=== PATIENT | male | born 1965 | race Caucasian/White ===

== ENCOUNTER → 2018-01-21 15:43 | Outpatient (CLI) | payer BC, SELFPAY ==
[2018-01-21 16:46] LABS: Add Manual Diff / Slide Review NO; Basophils Percent Auto 0.5 % (0-2); Eosinophils Percent Auto 2.1 % (2-4); Hematocrit 42.4 % (41-53); Hemoglobin 14.6 g/dL (13.5-17.5); Lymphocytes Percent Auto 28.2 % (25-40); Mean Corpuscular HGB Conc 34.3 % (30-36); Mean Corpuscular Hemoglobin 29.7 PG (26-34); Mean Corpuscular Volume 86.7 fL (80-100); Monocytes Percent Auto 10.9 % (3-14); Neutrophils Absolute Auto 4000 /uL (3000-5900); Neutrophils Percent Auto 58.3 % (50-75); Platelet Count 329 X10^3/uL (150-400); Red Cell Distribution Width 14.7 % (11.6-14.8); White Blood Cell Count 6.9 X10^3/uL (4.5-11.0)
[2018-01-21 16:47] LABS: Carbon Dioxide 24 mmol/L (22-32); Chloride 100 mmol/L (98-107); HEMOLYSIS < 15 (0-50); Potassium 4.5 mmol/L (3.4-5.1); Sodium 137 mmol/L (137-145)
== END ==
PROVIDERS: PCP Family Medicine; Visit Provider Orthopaedic Surgery
DX: M16.11 Unilateral primary osteoarthritis, right hip (principal); Z01.818 Encounter for other preprocedural examination; Z01.812 Encounter for preprocedural laboratory examination
CPT/HCPCS: 36415; 80051; 85025

== ENCOUNTER 2018-01-31 07:51 | Inpatient (IN) | payer BC, SELFPAY ==
[2018-01-21 12:56] VITALS: BMI 34.3
[2018-01-31] VITALS (17 sets, daily range): BP systolic 84–141; BP diastolic 49–81; PULSE 54–109; RESP 13–20; TEMP 35.7–37.1; O2SAT 94–97; BMI 32.4
--- NOTE | 2018-01-31 | DI.RAD.S_ITS ---
PROCEDURE: XR PELVIS 1-2V INDICATIONS: POST OPERATIVE TOTAL RIGHT HIP TECHNIQUE: 1 view of the lower pelvis acquired. COMPARISON: None. FINDINGS: Bones: Patient is status post right hip arthroplasty, with hardware components in expected positions. The hip joint appears congruent. The visualized bony structures appear intact. Soft tissues: Overlying postoperative changes are noted. No suspicious soft tissue densities. IMPRESSION: Normal alignment after right total hip arthroplasty. Dictated by: Sarath Fonseca M.D. on 01/31/2018 at 12:40 Approved by: Sarath Fonseca M.D. on 01/31/2018 at 12:40
[2018-01-31] MEDS: LACTATED RINGERS 1,000 ML 42 ML IV (08:45)
[2018-01-31] MEDS: ACETAMINOPHEN 325 MG TABLET 975 MG PO (08:56)
--- NOTE | 2018-01-31 09:27 | PM.PREOP ---
Pre-operative Note Interval Note Pre-op Check: History & Physical Reviewed by Physician and Changes
[2018-01-31] MEDS: CEFAZOLIN 2 GM/100 ML FROZ.PIGGY IV ×2 (09:57→18:13)
[2018-01-31] MEDS: TRANEXAMIC ACID 1,000 MG VIAL 1000 MG INJ ×3 (10:15→11:12)
--- NOTE | 2018-01-31 10:28 | SUR.OPER ---
Left Lateral on padded OR bed. Gel axillary roll. Arms secured on padded armboard with pillow supporting top arm. Padded hip positioner braces x4 - anterior and posterior chest and pelvis. Additional gel pad used anterior pelvis. Gel pad under bottom leg from knee to foot and secured with tape over sheet.
[2018-01-31] MEDS: BUPIVACAINE LIPOSOME 266 MG/20 ML VIAL INJ ×2 (10:35→10:36)
--- NOTE | 2018-01-31 12:07 | PM.OP.1 ---
Operative Date/Time/Diagnoses - Date of procedure: 01/31/18 Time of procedure: 12:07 Pre-op diagnosis: Right hip degenerative joint disease Post-op diagnosis: same Procedure & Clinicians Procedure: Right total hip arthroplasty (CPT code 31447 with assistant finance director) Same procedure as scheduled: Yes Indications: Patient is an 52-year-old male with severe right hip DJD. The patient has pain with activities and at rest, limited ambulation and activity tolerance, difficulties with ADLs, and failure of conservative treatment. We have discussed the nature of condition, treatment options, risks and benefits, and patient elects to proceed with total hip arthroplasty and gives informed consent. Surgeon: Delvin Johnson Support Representative: Ki Patten Anesthesia Type: General and Spinal Operative Notes Closure Type: primary Specimen(s): none sent Implants & Drains: Acetabulum: Stewart [employer]hew R3 acetabular component size 54 mm Femoral component: Stewart [employer]hew Synergy stem size 13 with standard offset Femoral head: 36 mm + 0 Oxinium Estimated Blood Loss (mL): 100 Blood products transfused: none Procedure in detail: After satisfaction induction of anesthetic, and administration of IV antibiotics, the patient was positioned in the lateral decubitus position with all bony prominences well padded and pelvic position secured using a hip link trainer operator positioning device. Right hip and lower extremity prepped and draped in the usual sterile fashion, 1st dose of intravenous tranexamic acid was administered, then a longitudinal incision was created centered over the greater trochanter and carried sharply through the skin and subcutaneous tissues down to the fascia raina which was divided longitudinally and retracted with a Charnley retractor. External rotators visualize, cut, tagged, and retracted posteriorly, then the capsule was cut in a T-type fashion with the corners tagged and retracted. Hip was dislocated and femoral neck cut made according to preoperative templating. Acetabular retractors then placed, and the acetabular labrum and osteophytes were excised. The acetabulum was then sequentially reamed to 53 mm with an excellent circumferential ream and fit with the trial. The trial component was removed and a permanent size 54 mm Stewart [employer] Nephew R3 acetabular component was selected, positioned, and impacted with satisfactory position and fixation achieved. Permanent liner was then inserted with the elevated lip directed posteriorly. Soft tissue then removed off the lateral femoral neck in the lateral neck was entered using a box osteotome. T-handled reamers placed down the canal followed by sequential broaching to 13 with the final broach left in place for trial reduction which demonstrated excellent leg length, range of motion, and stability characteristics with a 36 mm +0 trial ball. The trial and broach were removed, and a permanent size 13 Stewart and Nephew Synergy stem was selected and inserted with excellent position and fixation achieved. Another trial reduction yielded the above characteristics so the trial ball was exchanged for a permanent 36 mm +0 Oxinium ball. The hip was irrigated and reduced and excellent leg length range of motion and stability characteristics were achieved and maintained. Periarticular tissues were infiltrated with Exparel. The hip was copiously irrigated, and the capsule repaired with #2 Ethibond, and the piriformis was repaired back to the greater trochanter with the same. Fascia raina closed with interrupted #1 Ethibond sutures, and the subcutaneous tissues were closed in 2 layers of 0 Vicryl and 2 0 Vicryl. Skin was closed with sujatha and sterile dressings applied. Second dose of tranexamic acid was administered intravenously, and the anesthetic was terminated. Complications: none Condition: stable Disposition: PACU Plan for aftercare: Patient will be admitted to the acute care weir, and anticipate discharge on postop day 1-2 with follow-up in office in 10-14 days. Outpatient physical therapy will be arranged and patient will continue to observe posterior hip precautions. Patient will continue use of postoperative Lovenox for 10 days postop.
--- NOTE | 2018-01-31 12:10 | P.OP_ITS ---
Operative Date/Time/Diagnoses - Date of procedure: 01/31/18 Time of procedure: 12:07 Pre-op diagnosis: Right hip degenerative joint disease Post-op diagnosis: same Procedure & Clinicians Procedure: Right total hip arthroplasty (CPT code 03545 with plastic surgery assistant) Same procedure as scheduled: Yes Indications: Patient is an 52-year-old male with severe right hip DJD. The patient has pain with activities and at rest, limited ambulation and activity tolerance, difficulties with ADLs, and failure of conservative treatment. We have discussed the nature of condition, treatment options, risks and benefits, and patient elects to proceed with total hip arthroplasty and gives informed consent. Surgeon: Delvin Johnson Air Conditioning Manager: Ki Patten Anesthesia Type: General and Spinal Operative Notes Closure Type: primary Specimen(s): none sent Implants & Drains: Acetabulum: Stewart [employer] Nephew R3 acetabular component size 54 mm Femoral component: Stewart [employer]hew Synergy stem size 13 with standard offset Femoral head: 36 mm + 0 Oxinium Estimated Blood Loss (mL): 100 Blood products transfused: none Procedure in detail: After satisfaction induction of anesthetic, and administration of IV antibiotics, the patient was positioned in the lateral decubitus position with all bony prominences well padded and pelvic position secured using a hip weaver wire loom positioning device. Right hip and lower extremity prepped and draped in the usual sterile fashion, 1st dose of intravenous tranexamic acid was administered, then a longitudinal incision was created centered over the greater trochanter and carried sharply through the skin and subcutaneous tissues down to the fascia raina which was divided longitudinally and retracted with a Charnley retractor. External rotators visualize, cut, tagged, and retracted posteriorly, then the capsule was cut in a T-type fashion with the corners tagged and retracted. Hip was dislocated and femoral neck cut made according to preoperative templating. Acetabular retractors then placed, and the acetabular labrum and osteophytes were excised. The acetabulum was then sequentially reamed to 53 mm with an excellent circumferential ream and fit with the trial. The trial component was removed and a permanent size 54 mm Stewart and Nephew R3 acetabular component was selected, positioned, and impacted with satisfactory position and fixation achieved. Permanent liner was then inserted with the elevated lip directed posteriorly. Soft tissue then removed off the lateral femoral neck in the lateral neck was entered using a box osteotome. T-handled reamers placed down the canal followed by sequential broaching to 13 with the final broach left in place for trial reduction which demonstrated excellent leg length, range of motion, and stability characteristics with a 36 mm +0 trial ball. The trial and broach were removed, and a permanent size 13 Stewart and Nephew Synergy stem was selected and inserted with excellent position and fixation achieved. Another trial reduction yielded the above characteristics so the trial ball was exchanged for a permanent 36 mm +0 Oxinium ball. The hip was irrigated and reduced and excellent leg length range of motion and stability characteristics were achieved and maintained. Periarticular tissues were infiltrated with Exparel. The hip was copiously irrigated, and the capsule repaired with #2 Ethibond, and the piriformis was repaired back to the greater trochanter with the same. Fascia raina closed with interrupted #1 Ethibond sutures, and the subcutaneous tissues were closed in 2 layers of 0 Vicryl and 2 0 Vicryl. Skin was closed with sujatha and sterile dressings applied. Second dose of tranexamic acid was administered intravenously , and the anesthetic was terminated. Complications: none Condition: stable Disposition: PACU Plan for aftercare: Patient will be admitted to the acute care weir, and anticipate discharge on postop day 1-2 with follow-up in office in 10-14 days. Outpatient physical therapy will be arranged and patient will continue to observe posterior hip precautions. Patient will continue use of postoperative Lovenox for 10 days postop.
[2018-01-31] MEDS: LACTATED RINGERS 1,000 ML 41 ML IV (12:16)
--- NOTE | 2018-01-31 12:19 | SUR.PHASEI ---
DR ETIENNE AWARE OF PTS BP AND HR, GIVE IV BOLUS LR PER DR ETIENNE. PT AWAKE DENIES ANY PAIN OR DISCOMFORT, DERMATONE LEVEL T 10, PT ABLE TO MOOVE LOWEER EXTREMITIES
--- NOTE | 2018-01-31 12:33 | SUR.PHASEI ---
REPORT CALLED TO YOSEF CRUZ
[2018-01-31] MEDS: OXYCODONE/ACETAMINOPHEN 5/325 TABLET 1 TAB PO ×2 (14:10→18:12)
[2018-01-31] MEDS: hydrOXYzine pamoate 25 MG CAPSULE PO ×2 (14:10→20:05)
[2018-01-31] MEDS: HYDROMORPHONE 0.5 MG INJ IV (14:15)
[2018-01-31] MEDS: HYDROCODONE/ACET 5/325 TABLET 1 TAB PO (16:22)
[2018-01-31] MEDS: LACTATED RINGERS 1,000 ML 100 ML IV (20:03)
[2018-01-31] MEDS: LORazepam 0.5 MG TABLET PO (20:04)
[2018-01-31] MEDS: METOPROLOL 25 MG TABLET 12.5 MG PO (20:04)
[2018-01-31] MEDS: ATORVASTATIN 20 MG TABLET PO (20:04)
[2018-01-31] MEDS: DOCUSATE 100 MG CAPSULE PO (20:04)
[2018-01-31] MEDS: OXYCODONE/ACETAMINOPHEN 5/325 TABLET 2 TAB PO (23:00)
[2018-02-01 00:01] VITALS: BP 114/70; PULSE 86; RESP 16; TEMP 36.6; O2SAT 95
[2018-02-01] MEDS: hydrOXYzine pamoate 25 MG CAPSULE PO ×2 (01:42→08:51)
[2018-02-01] MEDS: CEFAZOLIN 2 GM/100 ML FROZ.PIGGY IV (01:42)
[2018-02-01] MEDS: OXYCODONE/ACETAMINOPHEN 5/325 TABLET 2 TAB PO ×3 (04:34→12:54)
[2018-02-01 05:05] VITALS: BP 100/62; PULSE 64; RESP 16; TEMP 36.7; O2SAT 96
[2018-02-01 06:01] LABS: Hematocrit 37.8 % (41-53); Hemoglobin 12.7 g/dL (13.5-17.5)
[2018-02-01 06:50] VITALS: BP 112/77; PULSE 64
[2018-02-01 08:44] VITALS: BP 131/81; PULSE 64; RESP 17; TEMP 37.2; O2SAT 94
[2018-02-01] MEDS: ASPIRIN EC 81 MG TABLET PO (08:51)
[2018-02-01] MEDS: LISINOPRIL 10 MG TABLET PO (08:51)
[2018-02-01] MEDS: DOCUSATE 100 MG CAPSULE PO (08:51)
[2018-02-01] MEDS: METOPROLOL 25 MG TABLET 12.5 MG PO (08:51)
[2018-02-01] MEDS: ENOXAPARIN 40 MG/0.4 ML SYRINGE SUBCUT (08:52)
[2018-02-01] MEDS: LORazepam 0.5 MG TABLET PO (08:58)
--- NOTE | 2018-02-01 11:06 | PT.IIE ---
Current Diagnoses Unilateral primary osteoarthritis, right hip (01/31/18) Surgery Performed Operation Date: 01/31/18 09:45 Actual Procedures p Total Hip Arthroplasty(Right) - Delvin Johnson MD Surgical History (Last Updated 01/21/18 @ 15:02 by Pamella Spear, RN) History of cardiac cath (Acute ~10/2017) Medical History (Last Updated 01/21/18 @ 15:01 by Pamella Spear, RN) Anxiety (Acute) Arthritis (Acute) Hip pain, right (Acute) History of reactive airway disease (Acute) Impaired vision (Acute) Loss of hearing (Acute) Low back pain (Acute) On anticoagulant therapy (Acute) Restless legs (Acute) Shortness of breath (Acute) Physical Therapy Inpatient Evaluation/Re-Eval Medical Review Prior Functional Status Medical History Reviewed Yes Diet/Fluid Consistency Regular Communication no known deficits Mobility and Gait ind to mod ind w/ walker, depending on how he's feeling Activities of Daily Living and IADL's needs help getting on socks and shoes but has been performing this for him. Prior Functional Level (Other details) Participated in pre-op classes and feels he's getting around better now than he was just prior to the LOLA. Social History Household Members spouse Living Arrangements House Number of Floors (Floors) One Floor Number of Stairs To Enter/Railing? 1-2STE no rail Home Environment Standard Height Toilet Walk in Shower Home Equipment Front Wheel Walker Raised Toilet Seat w/Armrests Additional Social History Comment can provide as much assistance as is needed at home Physical Therapy Current Condition Current Condition Evaluation Date 02/01/18 Treatment Diagnosis R post LOLA Onset Date 01/31/18 Precautions Posterior Hip Precautions No Hip Flexion > 90 degrees No Hip Internal Rotation No Hip Adduction Weight Bearing Status Weight Bearing Status Weight Bear as Tolerated Subjective Physical Therapy Visit Type Type Initial Evaluation Visit Start Time 09:30 Visit Stop Time 10:00 Total Visit Minutes 30 Physical Therapy Visit Comments Patient Comments Pt feels he's already doing better now than before the surgery. Patient/Caregiver Goals go home today ANDREW Therapy Pain Assessment Pain When Pain Assessed At Rest Pain Present Pain Present Denied Pain PT-Bed Mobility Assessment Supine to Sit Supine to Sit Standby Assistance Sit to Supine Sit to Supine Standby Assistance Scooting Scooting to Edge of Bed Standby Assistance PT-Transfer Assessment Sit to and From Stand Sit to and from Stand Standby Assistance Equipment Transfer Assistive Device Front Wheeled Walker Transfers Transfer Destination Chair Transfer Technique Stand Step Pivot Transfer Ability Level of Assist Standby Assistance Gait Assessment Gait Gait Assistance Required: Standby Assistance Distance (Feet) (feet) 200 Assistive Devices Assistive Device Front Wheeled Walker Gait Deviations General Gait Pattern Antalgic Factors Limiting Gait Function Factors Limiting Gait Function Decreased Strength Pain Comments Gait Comments Began with step-to gait pattern but with cues and repetition able to progress to more symmetrical step-through gait pattern, definitely heavy reliance on BUE. Stair Climbing Assessment Comments Stair Climbing Comments not tested, has no stairs, won 't need to test. PT-Balance Assessment Sitting Balance and Reactions Static Sitting Balance Ability Good Dynamic Sitting Balance Ability Good Standing Balance and Reactions Static Standing Balance Ability Fair Dynamic Standing Balance Ability Fair Device Used FWW Orientation Orientation/Cognition Level of Alertness Alert Orientation Name Age Birthday Month Date Year Day of Week Place Situation Language Function Ability No Deficits Noted Safety Awareness Understands Safety Issues Memory Description No Deficits Noted Gross Range of Motion Upper Extremity ROM Assessment Within Functional Limits Lower Extremity ROM Impairments WFL within allowance of hip precautions Strength Upper Extremity Strength Assessment Within Functional Limits Comments Strength Comments not formally tested but LLE WFL and RLE able to perform some anti-gravity movements but limited by pain as well. Physical Therapy Treatment Exercises Exercises Ankle Pumps Gluteal Sets Quad Sets Heel Slides Supine Hip Abduction Education Education Provided Precautions Weight Bearing Status Post-Op Packet Safety PT Summary Assessment and Plan Potential Rehabilitation Potential Good Status of Condition at Evaluation Stable Summary Impairments Pain Strength Progress Towards Goals Safe For Discharge Assessment Summary POD#1 R post LOLA, pt doing well with mobility, supervision for all mobility with FWW. able to provide needed assist for ADLs. Pt eager to get home today. Pt is safe to discharge home at this time and will need to continue with OPPT. Goals Bed Mobility Goal Standby Assistance Transfer Goal Standby Assistance Gait Goal Standby Assistance Gait Distance 150 Days to Meet Goals 1 Frequency of Treatment Frequency Of Treatment Discharge Recommendations To Nursing Amount of Assist Needed Standby Assistance Discharge Recommendations PT Discharge Recommendations Home with Assistance Outpatient PT
[2018-02-01 11:23] VITALS: BP 141/89; PULSE 78; RESP 15; TEMP 37.3; O2SAT 92
--- NOTE | 2018-02-01 13:25 | CM.DANOTE ---
DCP/Assessment: Reviewed chart. Patient is a 52yr old male admitted to [facility] for elective right LOLA performed on 01-31-[address] Johnson. PCP is Dr. Carreno. Primary payor is 1)[facility] out of [facility]. Met with patient and spouse/Katerine at bedside explained CM/SW role. Patient reports that he plans to d/c home today. Patient and spouse report that they have all needed DME. Patient seen by therapy and cleared to return home. No additional needs identified. P: Home when medically stable. CONCHITA Morrison
--- NOTE | 2018-02-01 14:38 | PM.DS.1 ---
History of Present Illness Date Patient Seen: 02/01/18 Time Patient Seen: 13:39 Chief complaint: primary osteoarthrisits of right hip [id number] Narrative: Status post right total hip arthroplasty with Dr. Johnson Discharge Providers Date of admission: 01/31/18 07:51 Primary care physician: Fahad Carreno MD Consults: 01/31/18 13:55 Consult to Discharge Planning Routine Comment: Consult to Physical Therapy Evaluate & Treat Comment: Physician Instructions: post op LOLA protocol Discharge provider: Ricarda Mark PA-C Summary Discharge Diagnosis: Status post right total hip arthroplasty Hospital Course: Malachi was admitted for right total hip arthroplasty with Dr. Johnson and he consented to procedure. Hospital course was unremarkable. Postop day 1. He was feeling well and wanted to go home. He was eating and voiding without difficulty or assistance. He had been up ambulating with physical therapy, and knows his posterior hip precautions. He will set up outpatient physical therapy as soon as possible. He already has his prescriptions at home. He is refusing to do Lovenox for DVT prophylaxis, he will do ASA 81 mg b.i.d.. On day of discharge dressing was CDI, calves were soft, compressible, and nontender bilaterally. Status at Discharge Functional status at discharge: uses cane/walker Time Spent with Patient Less than 30 minutes Exam Vital Signs (past 8 hours): - 02/01/18 06:50 02/01/18 08:44 02/01/18 11:23 Temperature 98.9 F 99.2 F Pulse Rate 64 64 78 Respiratory Rate 17 15 Blood Pressure 112/77 131/81 H 141/89 H Pulse Oximetry 94 92 Oxygen Delivery Method Room Air Oxygen Flow Rate 0 Narrative Exam Narrative: Patient sitting at bedside chair in no acute distress. He is alert and oriented x3. Dressing on right hip is CDI. Sensation intact to light touch throughout bilateral lower extremities. Calves are soft, compressible, nontender bilaterally. Pulses are symmetrical. Pain is adequately controlled. He has been up and ambulating with physical therapy without difficulty. He denies any chest pain, or shortness of breath. Objective Labs Result Diagrams: 02/01/18 05:23 Labs: Laboratory Results - last 24 hr 02/01/18 05:23 Hgb 12.7 L Hct 37.8 L Discharge Plan Discharge Plan Patient Disposition: Home, Self-Care Discharge Med Rec/Prescriptions Prescriptions: Continue meloxicam [Mobic] 7.5 mg Tablet 15 mg PO DAILY Qty: 0 RF: 0 lisinopril 10 mg tablet 10 mg PO QDAY Qty: 30 RF: 5 metoprolol tartrate 25 mg tablet 12.5 mg PO BID Qty: 90 RF: 5 aspirin 81 mg tablet,delayed release (DR/EC) 81 mg PO QDAY Qty: 90 RF: 0 albuterol sulfate 90 mcg/actuation HFA aerosol inhaler 2 puff INHALATION Q4-6H PRN (Reason: bronchospasm) Qty: 6.7 RF: 5 hydroxyzine pamoate [Vistaril] 25 mg Capsule 25 - 50 mg PO Q6H PRN (Reason: Spasms) RF: 0 oxycodone 5 MG tablet 5 mg PO Q4HP PRN (Reason: Pain) RF: 0 atorvastatin 40 mg tablet 20 mg PO HS RF: 0 lorazepam 0.5 mg tablet 0.5 mg PO BIDP PRN (Reason: anxiety) RF: 0 Follow up/Referrals: Delvin Johnson MD [Physician] - (Follow-up in 5-7 days) Provider Discharge Instructions Diet: Diet as Tolerated Activity: Posterior hip precautions, weight bearing as tolerated. Cold/Heat Therapy: as needed Wound Care Report to your healthcare provider any signs of infection, such as:: chills, fever and increased pain Dressing: keep dressing in place until appointment Visit Report/Discharge Packet Instructions: DI for Hip Replacement Visit Report Forms: Stroke Signs & Symptoms Discharge Data Primary Care Provider: Fahad Carreno Attending Provider: Delvin Johnson Admit Date/Time: 01/31/18 07:51 Quality VTE Deep Vein Thrombosis/Pulmonary Embolism Present on Admission: No
--- NOTE | 2018-02-01 14:39 | PC.NURSE ---
discharge pt states pain controlled with percocet and vistaril. up with PT and FWW. d/c instructions provided to pt and . notified to call MD with any questions or concerns. F/u apt on 02/07. PIV removed without issue. pt left hospital with all his belongings. left in w/c with NATIONAL ACCOUNTS RECRUITER around 1420.
== END 2018-02-01 14:20 | disposition home or self-care (01) | DRG 470 ==
PROVIDERS: Admitting Provider Orthopaedic Surgery; PCP Family Medicine; Visit Provider Orthopaedic Surgery
PROC: 0SR90JZ Replacement of Right Hip Joint with Synthetic Substitute, Open Approach (ICD-10-PCS; CPT 27130; principal; 2018-01-31 09:45)
DX: M16.11 Unilateral primary osteoarthritis, right hip (principal); I51.81 Takotsubo syndrome; F41.9 Anxiety disorder, unspecified; I11.9 Hypertensive heart disease without heart failure; Z87.891 Personal history of nicotine dependence
CPT/HCPCS: 36415; 72170; 85014; 85018; 97116; 97161; C1776; C9290; J0690; J1100; J1170; J1650; J2405; J2704

== ENCOUNTER → 2019-05-09 07:34 | Outpatient (CLI) | payer OTHER, SELFPAY ==
[2018-01-31 13:57] VITALS: BMI 32.4
[2019-05-09 08:03] LABS: Add Manual Diff / Slide Review NO; Basophils Absolute Auto 0 /uL (0-100); Basophils Percent Auto 0.6 % (0-2); Eosinophils Absolute Auto 300 /uL (0-450); Eosinophils Percent Auto 4.4 % (2-4); Hematocrit 42.9 % (41-53); Hemoglobin 14.5 g/dL (13.5-17.5); Lymphocytes Absolute Auto 2000 /uL (1100-4500); Lymphocytes Percent Auto 31.7 % (25-40); Mean Corpuscular HGB Conc 33.9 % (30-36); Mean Corpuscular Volume 91.4 fL (80-100); Monocytes Absolute Auto 700 /uL (0-900); Monocytes Percent Auto 10.6 % (3-14); Neutrophils Absolute Auto 3300 /uL (1500-7000); Neutrophils Percent Auto 52.7 % (50-75); Platelet Count 315 X10^3/uL (150-400); Red Blood Cell Count 4.69 X10^6/uL (4.5-5.9); Red Cell Distribution Width 14.4 % (11.6-14.8); White Blood Cell Count 6.2 X10^3/uL (4.5-11.0)
[2019-05-09 08:06] LABS: Alanine Aminotransferase 37 IU/L (21-72); Albumin 4.5 g/dL (3.5-5.0); Albumin Globulin Ratio 1.6 (1.0-2.8); Alkaline Phosphatase 87 U/L (38-126); Aspartate Aminotransferase 31 IU/L (17-59); BUN Creatinine Ratio 38.3 (6-22); Bilirubin Total 0.4 mg/dL (0.2-1.3); Blood Urea Nitrogen 23 mg/dL (9-20); Calcium 9.6 mg/dL (8.4-10.2); Carbon Dioxide 28 mmol/L (22-32); Chloride 105 mmol/L (98-107); Cholesterol 151 mg/dL (140-199); Estimated Glomerular Filt Rate > 60.0 mL/min (>60); Globulin 2.8 g/dL (1.7-4.1); Glucose 104 mg/dL (70-100); HDL Cholesterol 59 mg/dL (40-60); HEMOLYSIS < 15 (0-50); LDL Cholesterol Calculated 76 mg/dL (<100); Potassium 4.9 mmol/L (3.4-5.1); Sodium 140 mmol/L (137-145); Total Protein 7.3 g/dL (6.3-8.2); Triglycerides 80 mg/dL (35-150)
[2019-05-09 08:36] LABS: Prostate Specific Antigen Scrn 0.852 ng/mL (0.1-4.0)
[2019-05-09 09:04] LABS: Thyroid Stimulating Hormone 2.58 uIU/mL (0.47-4.68)
== END ==
PROVIDERS: PCP Family Medicine; Visit Provider Family Medicine
DX: I24.9 Acute ischemic heart disease, unspecified (principal)
CPT/HCPCS: 36415; 80053; 80061; 84443; 85025; G0103

== ENCOUNTER → 2019-09-12 11:07 | Outpatient (CLI) | payer BC, SELFPAY ==
[2018-01-31 13:57] VITALS: BMI 32.4
--- NOTE | 2019-09-12 | DI.RAD.S_ITS ---
PROCEDURE: XR CHEST 2V INDICATIONS: shortness of breath TECHNIQUE: 2 views of the chest were acquired. COMPARISON: [facility], , CHEST 1 VIEW, 11/10/2017, 2:25. FINDINGS: Surgical changes and devices: Stable cervical spinal fusion hardware. Lungs and pleura: Hyperaeration with flattening of the hemidiaphragms. Changes compatible with chronic obstructive pulmonary physiology. No focal consolidation. No pleural effusions or pneumothorax. Mediastinum: Mediastinal contours are normal. Heart size is normal. Bones and chest wall: No suspicious bony abnormalities. Soft tissues appear unremarkable. IMPRESSION: Chest without acute cardiopulmonary abnormalities. Findings consistent with chronic obstructive pulmonary physiology. No focal airspace disease. Dictated by: Sebastián Davis M.D. on 09/12/2019 at 14:41 Approved by: Sebastián Davis M.D. on 09/12/2019 at 14:46
== END ==
PROVIDERS: PCP Family Medicine; Referring Provider Family Medicine; Visit Provider Family Medicine
DX: R06.02 Shortness of breath (principal)
CPT/HCPCS: 71046

== ENCOUNTER → 2020-07-31 09:55 | Outpatient (CLI) | payer BC, SELFPAY ==
[2018-01-31 13:57] VITALS: BMI 32.4
[2020-07-31 10:23] LABS: Add Manual Diff / Slide Review NO; Basophils Absolute Auto 0 /uL (0-100); Basophils Percent Auto 0.7 % (0-2); Eosinophils Absolute Auto 200 /uL (0-450); Eosinophils Percent Auto 2.6 % (2-4); Hematocrit 43.4 % (41-53); Hemoglobin 14.5 g/dL (13.5-17.5); Lymphocytes Absolute Auto 1700 /uL (1100-4500); Lymphocytes Percent Auto 27.8 % (25-40); Mean Corpuscular HGB Conc 33.5 % (30-36); Mean Corpuscular Hemoglobin 30.5 PG (26-34); Mean Corpuscular Volume 90.9 fL (80-100); Monocytes Absolute Auto 600 /uL (0-900); Monocytes Percent Auto 9.6 % (3-14); Neutrophils Absolute Auto 3600 /uL (1500-7000); Neutrophils Percent Auto 59.3 % (50-75); Platelet Count 297 X10^3/uL (150-400); Red Blood Cell Count 4.77 X10^6/uL (4.5-5.9); Red Cell Distribution Width 14.2 % (11.6-14.8)
[2020-07-31 11:33] LABS: TSH w/ Reflex to FT4 1.75 uIU/mL (0.47-4.68)
[2020-07-31 12:53] LABS: Alanine Aminotransferase 33 IU/L (<50); Albumin 4.5 g/dL (3.5-5.0); Albumin Globulin Ratio 1.5 (1.0-2.8); Alkaline Phosphatase 84 U/L (38-126); Aspartate Aminotransferase 33 IU/L (17-59); BUN Creatinine Ratio 27.3 (6-22); Bilirubin Total 0.3 mg/dL (0.2-1.3); Blood Urea Nitrogen 15 mg/dL (9-20); Calcium 9.4 mg/dL (8.4-10.2); Carbon Dioxide 31 mmol/L (22-32); Chloride 101 mmol/L (98-107); Cholesterol 153 mg/dL (140-199); Estimated Glomerular Filt Rate > 60.0 mL/min (>60); Globulin 3.1 g/dL (1.7-4.1); Glucose 109 mg/dL (70-100); HDL Cholesterol 59 mg/dL (40-60); HEMOLYSIS < 15 (0-50); LDL Cholesterol Calculated 72 mg/dL (<100); Potassium 4.5 mmol/L (3.4-5.1); Sodium 136 mmol/L (137-145); Total Protein 7.6 g/dL (6.3-8.2); Triglycerides 109 mg/dL (35-150)
[2020-07-31 13:21] LABS: Prostate Specific Antigen 1.23 ng/mL (0.10-4.00)
[2020-07-31 14:36] LABS: Hemoglobin A1C% w Est Avg Glu 6.1 % (4.0-6.0)
== END ==
PROVIDERS: PCP Family Medicine; Referring Provider Family Medicine; Visit Provider Family Medicine
DX: I10 Essential (primary) hypertension (principal); I24.9 Acute ischemic heart disease, unspecified
CPT/HCPCS: 36415; 80053; 80061; 83036; 84153; 84443; 85025

== ENCOUNTER → 2020-08-22 14:17 | Outpatient (CLI) | payer BC, SELFPAY ==
[2020-08-05 13:40] VITALS: BMI 32.4
[2020-08-22 16:07] LABS: COVID19 -Nasal RAPID Negative (Negative)
== END ==
PROVIDERS: PCP Family Medicine; Visit Provider Surgery
DX: Z20.822 Contact with and (suspected) exposure to COVID-19 (principal); Z01.812 Encounter for preprocedural laboratory examination
CPT/HCPCS: 87635; C9803

== ENCOUNTER 2020-08-23 07:23 | Day surgery (SDC) | payer BC, SELFPAY ==
[2020-08-05 13:40] VITALS: BMI 32.4
--- NOTE | 2020-08-23 | PATH_ITS ---
[facility] Accession Number: [id number] . 01 Material submitted: . PART A: body - POLYP AT 120 CM PART B: body - POLYP AT 65 CM . 02 Diagnosis: A. Colon Polyp at 120 cm, Biopsy: Tubular adenoma. . B. Colon Polyp at 65 cm, Biopsy: Tubular adenoma. MRV 08/28/2020 1136 Local . 02 Electronically signed: . Issac Reyes MD, PhD, Pathologist NPI- [id number] . 01 Gross description: . Part A: POLYP AT 120 CM: Received in formalin are 2 fragment(s) of parnell, soft tissue measuring 0.2 x 0.1 x 0.1 cm to 0.3 x 0.3 x 0.2 cm submitted entirely in 1 cassette(s) Part B: POLYP AT 65 CM: Received in formalin are 2 fragment(s) of parnell, soft tissue measuring 0.7 x 0.4 x 0.4 cm to 1.1 x 0.7 x 0.6 cm submitted entirely in 1 cassette(s) /MAIRA 08/26/2020 1914 Local . 02 Pathologist provided ICD-10: D12.6 . 02 CPT . 808974, [id number] Performed at: 01 [facility] [address], [place], [place] [id number] MD Florian Lara MD Phone: [phone] Performed at: 02 [facility] [address] [place], [place] [id number] MD Kusum Mcallister MD Phone: [phone]
[2020-08-23] MEDS: SODIUM CHLORIDE 0.9% 1,000 ML 200 ML IV (07:50)
[2020-08-23 07:51] VITALS: BP 135/81; PULSE 76; RESP 16; TEMP 37.1; O2SAT 96; BMI 36.5
--- NOTE | 2020-08-23 08:23 | PM.HP.1 ---
History of Present Illness History of Present Illness Date Patient Seen: 08/23/20 Time Patient Seen: 08:23 Chief complaint: SDC Narrative: This is a 55-year-old man who has never had a screening colonoscopy. He denies any personal or family history of colon cancers or colon polyps. He is a current smoker. He has a history of stress-induced cardiomyopathy and NSTEMI, but has been deemed stable by his primary care provider and [employer], and last echo was EF of 50%. He has obesity with a BMI of 36. He has noticed some changes in bowel habit, with increased constipation and some blood in the stool. He denies any melena, unexplained weight loss, or unexplained abdominal pain. He is here today for his 1st screening colonoscopy. ROS: Positive for shortness of breath. Thirteen system review is otherwise negative other than as mentioned below and in HPI. PE: GENERAL: Well groomed and cooperative. Appears stated age. Answers questions promptly and appropriately. Vital signs noted. HENT: Normocephalic, atraumatic. Hearing intact. EYES: Conjunctiva pink, sclera white, no periorbital swelling. CARDIOVASCULAR: Regular rate. No pedal edema. RESPIRATORY: Non-tachypneic, breathing comfortably on room air. GASTROINTESTINAL: Abdomen soft and non-distended GENITALURINARY: No flank tenderness. MUSCULOSKELETAL: Equal tone and mass bilaterally. SKIN: Warm, dry, soft, appropriate color for ethnicity. No other lesions, rashes, or wounds. NEURO: Alert and Oriented X 3. No gross sensory deficits, or cognitive issues. PSYCH: Appropriate affect and mood. Patient History Medical History Anxiety Arthritis Asthma Hip pain, right History of reactive airway disease Hyperlipidemia Hypertension Impaired vision Loss of hearing Low back pain On anticoagulant therapy Prediabetes Restless legs Shortness of breath Surgical History History of cardiac cath (~10/2017) Family & Social History Social History: household members spouse Tobacco & Substance use: Tobacco type cigarettes,smokeless tobacco Smoking Status Former smoker alcohol intake current alcohol intake frequency a few times a week Substance Use Type does not use Meds Home Medications and Allergies Home Medications Medication Instructions Recorded Confirmed Type albuterol sulfate 90 mcg/actuation 2 puff INHALATION Q4-6H PRN #6.7 12/03/20 01/22/21 Rx aerosol inhaler gram atorvastatin 40 mg tablet 20 mg PO HS #90 tab 07/04/20 08/23/20 Rx lisinopril 10 mg tablet 10 mg PO QDAY #90 tab 07/04/20 08/23/20 Rx metoprolol tartrate 25 mg tablet 12.5 mg PO BID #90 tab 07/04/20 08/23/20 Rx tamsulosin 0.4 mg capsule 0.4 mg PO BEDTIME #90 cap 07/31/20 08/23/20 Rx Allergies Allergy/AdvReac Type Severity Reaction Status Date / Time No Known Drug Allergies Allergy Verified 08/23/20 07:42 Exam Vital Signs (past 8 hours): - 08/23/20 07:51 Temperature 98.7 F Pulse Rate 76 Respiratory Rate 16 Blood Pressure 135/81 Pulse Oximetry 96 Oxygen Delivery Method Room Air Assessment & Plan Assessment and plan (1) Prediabetes: Status: Acute (2) Asthma: Qualifiers: Asthma severity: mild Asthma persistence: persistent Asthma complication type: uncomplicated Qualified Code(s): J45.30 - Mild persistent asthma, uncomplicated Status: Acute (3) Non-ST elevation (NSTEMI) myocardial infarction: Status: None (4) Stress-induced cardiomyopathy: Status: None (5) Change in bowel habits: Status: Acute (6) Smoker: Status: Acute Assessment & Plan narrative: Risks and benefits of screening colonoscopy and possible polypectomy were discussed with the patient including risk of bleeding, perforation, need for additional procedures, risks of anesthesia. The patient desires to proceed with the colonoscopy procedure. COVID-19 COVID-19 status: Negative Result date/Date tested (Pos, Neg/Pending): 08/22/20 Time Spent With Patient Time with patient: 15-24 minutes Quality VTE Deep Vein Thrombosis/Pulmonary Embolism Present on Admission: No
[2020-08-23] MEDS: fentaNYL 250 MCG/5 ML INJ IV (08:29)
[2020-08-23] MEDS: MIDAZOLAM 5 MG/5 ML VIAL IV (08:33)
--- NOTE | 2020-08-23 09:05 | PM.OP.ENDO ---
Operative Date/Time/Diagnoses Date of procedure: 08/23/20 Time of procedure: 09:06 Pre-op diagnosis: Change in bowel habits, never had a screening colonoscopy, over the age for screening colonoscopy Post-op diagnosis: other (Three adenomatous appearing Polyps) Procedure & Clinicians Study performed: Colonoscopy Procedural sedation performed by the endoscopy Polypectomy x1 with Jumbo forceps Polypectomy x2 with hot snare Same procedure as scheduled: Yes Indications: Change in bowel habit, never had a screening colonoscopy Surgeon: Teri Kruse Procedure Notes SCOAP/Timeout: Performed Procedure in detail: The patient was brought to the room and placed in left lateral decubitus position with all bony prominences padded. A time-out was performed and then the patient was given procedural sedation starting with 4 mg of Versed and [100] mcg of fentanyl. A total of 6 mg of Versed and 100 micro g of fentanyl were given for the entire procedure. Vitals were monitored throughout the procedure and remained stable. Once adequately sedated, the procedure was begun. A rectal exam was performed revealing [no abnormalities]. The colonoscope was then introduced to the rectum and advanced to the cecum in the usual fashion. The prep was moderate to poor, limiting my view of polyps smaller than 5 mm. []The cecum was identified by the appendiceal orifice, the mucosal tri-fold, and the ileocecal valve. The scope was then retracted while rotating side to side and examining each mucosal fold. A 5 mm polyp was removed at 120 cm Jumbo forceps, two 1 cm polyps removed at 65 cm with hot snare. [] At the conclusion of the procedure retroflexion was performed and [small grade 1 internal hemorrhoids without stigmata of bleeding were seen]. The scope was then withdrawn from the rectum the procedure was concluded. The patient tolerated the procedure well and was transferred to the PACU in stable condition. Scope withdrawal time: 19 Sedation minutes: 36 Findings: polyp Specimen(s): other (Three polyps) Complications: none Impression: Multiple precancerous/adenomatous appearing polyps. Moderate to poor prep. Poor visualization of polyp smaller than 5 mm due to poor prep. Post-procedure Recommendations: Colonscopy in 5 years (Depending on pathology results) Follow up: as needed Disposition: PACU
[2020-08-23 09:11] VITALS: BP 115/66; PULSE 72; RESP 16; TEMP 36.2; O2SAT 97
[2020-08-23 09:16] VITALS: BP 129/75; PULSE 86; RESP 16; O2SAT 97
[2020-08-23 09:21] VITALS: BP 125/78; PULSE 85; RESP 16; O2SAT 98
[2020-08-23 09:25] VITALS: BP 123/62; PULSE 86; RESP 16; TEMP 36.3; O2SAT 98
[2020-08-23 09:45] VITALS: BP 122/75; PULSE 53; RESP 17; TEMP 36.3; O2SAT 96
== END 2020-08-23 09:48 | disposition home or self-care (01) ==
PROVIDERS: PCP Family Medicine; Referring Provider Surgery; Visit Provider Surgery
PROC: 0DJD8ZZ Inspection of Lower Intestinal Tract, Via Natural or Artificial Opening Endoscopic (ICD-10-PCS; CPT 45378; principal; 2020-08-23 08:30)
DX: R19.4 Change in bowel habit (principal); R73.03 Prediabetes; J45.30 Mild persistent asthma, uncomplicated; F17.200 Nicotine dependence, unspecified, uncomplicated; I25.2 Old myocardial infarction; I51.81 Takotsubo syndrome; K64.0 First degree hemorrhoids; D12.6 Benign neoplasm of colon, unspecified
CPT/HCPCS: 45385; 45380; 99152; 99153; J2250; J3010

== ENCOUNTER → 2021-09-29 16:43 | Outpatient (CLI) | payer OTHER, SELFPAY ==
[2020-08-05 13:40] VITALS: BMI 32.4
--- NOTE | 2021-09-29 16:45 | DI.RAD.S_ITS ---
PROCEDURE: XR CLAVICLE LT INDICATIONS: L shoulder pain TECHNIQUE: 2 views of the clavicle were acquired. COMPARISON: [facility], CR, XR SHOULDER LT MIN 2V, 09/29/2021, 16:43. FINDINGS: Bones: There is chronic appearing grade 3 separation of the acromioclavicular joint with extensive degenerative change and a large inferior clavicular spur. Mild degenerative changes are present at the glenohumeral joint. Soft tissues: Visualized portions of the pulmonary apices are unremarkable. There is calcific tendinitis of the coracoclavicular ligament. IMPRESSION: Chronic appearing grade 3 separation of the left acromioclavicular joint with extensive degenerative changes. Dictated by: Margaret Horan M.D. on 09/30/2021 at 9:24 Approved by: Margaret Horan M.D. on 09/30/2021 at 9:29
--- NOTE | 2021-09-29 16:45 | DI.RAD.S_ITS ---
PROCEDURE: XR SHOULDER LT MIN 2V INDICATIONS: pain from old injury TECHNIQUE: 3 views of the shoulder were acquired. COMPARISON: [facility], , SHOULDER MINIMUM 2VIEW RIGHT, 10/10/2013, 17:08. FINDINGS: Bones: There is chronic appearing separation of the left acromioclavicular joint with marked degenerative change and partial calcification of the coracoclavicular ligament. Degenerative changes are noted at the glenohumeral joint with subchondral cystic changes of the humeral head. The ribs are intact. Soft tissues: Visualized portions of the left lung are unremarkable. IMPRESSION: Severe degenerative change of the acromioclavicular joint and mild degenerative change of the glenohumeral joint. Dictated by: Margaret Horan M.D. on 09/30/2021 at 9:29 Approved by: Margaret Horan M.D. on 09/30/2021 at 9:30
== END ==
PROVIDERS: PCP Family Medicine; Referring Provider Family Medicine; Visit Provider Family Medicine
DX: M24.812 Other specific joint derangements of left shoulder, not elsewhere classified (principal); M75.32 Calcific tendinitis of left shoulder; M25.512 Pain in left shoulder; Q74.0 Other congenital malformations of upper limb(s), including shoulder girdle
CPT/HCPCS: 73000; 73030

== ENCOUNTER → 2022-09-29 09:21 | Outpatient (CLI) | payer BC, SELFPAY ==
[2020-08-05 13:40] VITALS: BMI 32.4
--- NOTE | 2022-09-29 09:38 | DI.RAD.S_ITS ---
PROCEDURE: XR CERVICAL SPINE 2V OR 3V INDICATIONS: NECK PAIN WITH REDICUOPATHY TECHNIQUE: Three views of the cervical spine were acquired. COMPARISON: [facility], CR, XR CLAVICLE LT, 09/29/2021, 16:43. [facility], CR, SPINE CERVICAL 1VW, 07/09/2014, 13:25. [facility], CR, SPINE CERVICAL 2 OR 3VW, 10/17/2014, 14:51. FINDINGS: Bones: No acute fractures or dislocations to the C7 level. Postsurgical changes are seen from prior anterior cervical disc fusion at C5 through C7. Metallic hardware is intact. Mild multilevel degenerative changes. 2 mm grade 1 anterolisthesis of C4 on C5 is noted. The lateral masses of C1 appear intact on the odontoid view. No suspicious bony lesions. Soft tissues: No prevertebral soft tissue swelling. IMPRESSION: 1. Postsurgical changes again seen at C5 through C7. 2. Mild grade 1 anterolisthesis of C4 on C5, likely secondary to progressive degenerative changes. Approved by: Florin Mcclelland M.D. on 09/29/2022 at 13:00
[2022-09-29 10:18] LABS: Add Manual Diff / Slide Review NO; Basophils Absolute Auto 0 /uL (0-100); Basophils Percent Auto 0.6 % (0-2); Eosinophils Absolute Auto 200 /uL (0-450); Eosinophils Percent Auto 4.6 % (2-4); Hemoglobin 14.1 g/dL (13.5-17.5); Lymphocytes Absolute Auto 1300 /uL (1100-4500); Lymphocytes Percent Auto 24.3 % (25-40); Mean Corpuscular HGB Conc 33.6 % (30-36); Mean Corpuscular Hemoglobin 30.5 PG (26-34); Mean Corpuscular Volume 90.6 fL (80-100); Monocytes Absolute Auto 700 /uL (0-900); Monocytes Percent Auto 12.3 % (3-14); Neutrophils Absolute Auto 3100 /uL (1500-7000); Neutrophils Percent Auto 58.2 % (50-75); Platelet Count 285 X10^3/uL (150-400); Red Blood Cell Count 4.64 X10^6/uL (4.5-5.9); Red Cell Distribution Width 13.9 % (11.6-14.8); White Blood Cell Count 5.3 X10^3/uL (4.5-11.0)
[2022-09-29 10:37] LABS: Alanine Aminotransferase 29 IU/L (<50); Albumin 4.1 g/dL (3.5-5.0); Albumin Globulin Ratio 1.4 (1.0-2.8); Alkaline Phosphatase 74 U/L (38-126); Aspartate Aminotransferase 26 IU/L (17-59); BUN Creatinine Ratio 26.3 (6-22); Bilirubin Total 0.4 mg/dL (0.2-1.3); Blood Urea Nitrogen 15 mg/dL (9-20); Calcium 8.6 mg/dL (8.4-10.2); Carbon Dioxide 26 mmol/L (22-32); Chloride 100 mmol/L (98-107); Cholesterol 184 mg/dL (140-199); Estimated Glomerular Filt Rate > 60 mL/min (>60); Glucose 116 mg/dL (70-100); HDL Cholesterol 58 mg/dL (40-60); HEMOLYSIS < 15 (0-50); LDL Cholesterol Calculated 111 mg/dL (<100); Potassium 4.5 mmol/L (3.4-5.1); Sodium 137 mmol/L (137-145); Total Protein 7.1 g/dL (6.3-8.2); Triglycerides 73 mg/dL (35-150)
[2022-09-29 10:40] LABS: Hemoglobin A1C% w Est Avg Glu 5.9 % (4.0-6.0)
[2022-09-29 11:03] LABS: Prostate Specific Antigen 1.19 ng/mL (0.10-4.00)
== END ==
PROVIDERS: PCP Family Medicine; Referring Provider Family Medicine; Visit Provider Family Medicine
DX: M47.22 Other spondylosis with radiculopathy, cervical region (principal); M43.12 Spondylolisthesis, cervical region; M54.2 Cervicalgia; E78.5 Hyperlipidemia, unspecified; I10 Essential (primary) hypertension; R73.03 Prediabetes; Z98.1 Arthrodesis status
CPT/HCPCS: 36415; 72040; 80053; 80061; 83036; 84153; 85025

== ENCOUNTER 2023-02-17 22:08 | Emergency (ER) | payer BC, SELFPAY ==
[2020-08-05 13:40] VITALS: BMI 32.4
[2023-02-17 22:12] VITALS: BP 157/84; PULSE 65; RESP 16; TEMP 36; O2SAT 96; BMI 33.4
--- NOTE | 2023-02-17 22:51 | ED.GENADULT ---
HPI - General Adult General Chief complaint: Extremity Injury, Upper Stated complaint: fish hook in lt thumb Time Seen by Provider: 02/17/23 22:11 Source: patient Mode of arrival: Ambulatory History of Present Illness HPI narrative: 57-year-old male here for evaluation of a fishhook to his left thumb. He is up-to-date on his tetanus. It occurred this afternoon. Tried to remove it himself but could not Related Data Previous Rx's Medication Instructions Recorded triamcinolone acetonide 0.025 % 1 applic topical BID #80 grams 11/11/22 topical ointment albuterol sulfate 90 mcg/actuation 2 puff inhalation Q4-6H PRN 11/18/22 aerosol inhaler bronchospasm #6.7 grams atorvastatin 20 mg tablet 20 mg PO BEDTIME #90 tabs 02/05/23 lisinopril 10 mg tablet 10 mg PO QDAY #90 tabs 02/05/23 metoprolol tartrate 25 mg tablet 12.5 mg PO BID #90 tabs 02/05/23 Allergies Allergy/AdvReac Type Severity Reaction Status Date / Time No Known Drug Allergies Allergy Verified 09/29/22 08:27 Review of Systems Musculoskeletal Musculoskeletal: Reports system reviewed and no additional complaints, except as documented Integumentary/Breasts Skin/Breast: Reports system reviewed and no additional complaints, except as documented Patient History Medical History Anxiety Arthritis Asthma Clavicular asymmetry Hip pain, right History of reactive airway disease Hyperlipidemia Hypertension Impaired vision Left shoulder pain Loss of hearing Low back pain On anticoagulant therapy Prediabetes Restless legs Shortness of breath Well adult exam Surgical History History of cardiac cath (~10/2017) Social History household members: spouse Smoking Status: Former smoker Tobacco: How many years used: 35 alcohol intake: current substance use type: does not use Smoking Status: Former smoker alcohol intake frequency: a few times a week Substance Use Type: does not use Exam Initial Vital Signs Initial Vital Signs: Vital Signs Temperature 96.8 F L 02/17/23 22:12 Pulse Rate 65 02/17/23 22:12 Respiratory Rate 16 02/17/23 22:12 Blood Pressure 157/84 H 02/17/23 22:12 Pulse Oximetry 96 02/17/23 22:12 Oxygen Delivery Method Room Air 02/17/23 22:12 Skin Other: Patient with a fishhook embedded in the pad of his left thumb Procedures Foreign Body OTHER Foreign Body Removal Site: left and other (Thumb) Description of foreign body: fish hook Sedation/Analgesia: other (Lidocaine) Technique: manual removal Confirmed by:: direct visualization Complications: none Course Orders Ordered: Discontinued Medications Lidocaine HCl (Lidocaine 1% 20 Ml) 20 ml INJ INTRA-OP ONE Stop: 02/17/23 22:12 Last Admin: 02/17/23 22:55 Dose: 20 ml Vital Signs Vital signs: Vital Signs - 8 hr 02/17/23 22:12 02/17/23 23:01 Temperature 96.8 F L 97.3 F L Pulse Rate 65 68 Respiratory Rate 16 16 Blood Pressure 157/84 H 138/74 Pulse Oximetry 96 98 Oxygen Delivery Method Room Air Room Air Medical Decision Making MDM Narrative Medical decision making narrative: Fish hook was easily removed after numbing the area. Patient is up-to-date on his tetanus. Patient was given care instructions and return precautions. Discharge Plan Departure Patient Disposition: Home Clinical Impression: Fish hook in finger Activity Restrictions/Additional Instructions: You can wash your hands like normal. You can put topical antibiotic ointment over the area and a bandage as needed. Return to the emergency department for new symptoms. Prescriptions: No Action triamcinolone acetonide 0.025 % ointment 1 applic topical BID Qty: 80 2RF albuterol sulfate 90 mcg/actuation HFA aerosol inhaler 2 puff INHALATION Q4-6H PRN (Reason: bronchospasm) Qty: 6.7 5RF Rx Instructions: administer with spacer. Generic okay atorvastatin 20 mg tablet 20 mg PO BEDTIME Qty: 90 3RF lisinopril 10 mg tablet 10 mg PO QDAY Qty: 90 3RF metoprolol tartrate 25 mg tablet 12.5 mg PO BID Qty: 90 3RF Referrals: Piotr Moore DO [Primary Care Provider] - Stand Alone Forms: Patient Portal/API
[2023-02-17] MEDS: LIDOCAINE 1% 20 ML INJ (22:55)
[2023-02-17 23:01] VITALS: BP 138/74; PULSE 68; RESP 16; TEMP 36.3; O2SAT 98
== END 2023-02-17 23:02 | disposition home or self-care (01) ==
PROVIDERS: Emergency Provider Emergency Medicine; PCP Family Medicine
DX: S69.92XA Unspecified injury of left wrist, hand and finger(s), initial encounter (principal)
CPT/HCPCS: 99282

== ENCOUNTER → 2023-07-11 12:10 | Outpatient (CLI) | payer BC, SELFPAY ==
[2020-08-05 13:40] VITALS: BMI 32.4
--- NOTE | 2023-07-11 12:12 | DI.RAD.S_ITS ---
PROCEDURE: XR LUMBAR SPINE 2-3V INDICATIONS: eval low back pain TECHNIQUE: 3 views of the lumbar spine were acquired. COMPARISON: [facility], XR LUMBAR SPINE 2 OR 3 VIEWS, 03/29/2019, 15:36. FINDINGS: Bones: 5 [id number] vertebrae are present. There is normal bony alignment. No vertebral body compression fractures. No suspicious bony lesions. Postsurgical changes with discectomy at L3-L4 and L4-L5 with disc prosthesis. Posterior fusion at L3- S1. There is subtle lucency surrounding the pedicular screws. Moderate degenerative disease at T12-L1 and L1-L2, and mild degenerative disease at L2-L3. Note is made of right hip arthroplasty. Soft tissues: Overlying bowel gas pattern is normal. No suspicious soft tissue calcifications. IMPRESSION: 1. Post surgical changes in lumbar spine with discectomy and posterior fusion at L3-S1. There is subtle lucency surrounding the pedicular screws. Consider CT for further evaluation if clinically indicated. 2. Moderate degenerative disc disease in upper lumbar spine. Dictated by: Dawit Jones M.D. on 07/11/2023 at 18:13 Approved by: Dawit Jones M.D. on 07/11/2023 at 18:20
--- NOTE | 2023-07-11 12:12 | DI.RAD.S_ITS ---
PROCEDURE: XR SOFT TISSUE NECK INDICATIONS: Eval and Treat- progressive neck pain TECHNIQUE: 2 views of the neck were acquired. COMPARISON: [facility], XR CERVICAL SPINE 2V OR 3V, 09/29/2022, 9:41. FINDINGS: Airway: The airway appears patent. Soft tissues: Prevertebral soft tissues are normal in thickness. The epiglottis and aryepiglottic folds appear normal. No soft tissue gas. Bones: No suspicious bony lesions. Visualized cervical spine is normally aligned. Discectomy and anterior fusion at C5-C7. There is bilateral facet arthropathy, severe at C4-C5. Dystrophic soft tissue calcification in posterior neck. IMPRESSION: 1. No acute abnormality. 2. Degenerative and postsurgical changes in cervical spine. 3. If clinical symptoms persist, consider cross-sectional imaging such as CT or MRI. Dictated by: Dawit Jones M.D. on 07/11/2023 at 17:30 Approved by: Dawit Jones M.D. on 07/11/2023 at 17:33
== END ==
PROVIDERS: PCP Family Medicine; Referring Provider Family Medicine; Visit Provider Family Medicine
DX: M47.812 Spondylosis without myelopathy or radiculopathy, cervical region (principal); M54.2 Cervicalgia; M51.36 Other intervertebral disc degeneration, lumbar region; M54.50 Low back pain, unspecified; Z98.1 Arthrodesis status
CPT/HCPCS: 70360; 72100

== ENCOUNTER → 2024-06-02 09:54 | Outpatient (CLI) | payer BC, SELFPAY ==
[2020-08-05 13:40] VITALS: BMI 32.4
[2024-06-02 10:45] LABS: Add Manual Diff / Slide Review NO; Basophils Absolute Auto 0 /uL (0-100); Basophils Percent Auto 0.6 % (0-2); Eosinophils Absolute Auto 100 /uL (0-450); Eosinophils Percent Auto 1.6 % (2-4); Hematocrit 43.2 % (41-53); Hemoglobin 14.6 g/dL (13.5-17.5); Lymphocytes Absolute Auto 1400 /uL (1100-4500); Lymphocytes Percent Auto 18.3 % (25-40); Mean Corpuscular HGB Conc 33.8 % (30-36); Mean Corpuscular Hemoglobin 30.8 PG (26-34); Monocytes Absolute Auto 700 /uL (0-900); Monocytes Percent Auto 8.6 % (3-14); Neutrophils Absolute Auto 5400 /uL (1500-7000); Neutrophils Percent Auto 70.9 % (50-75); Platelet Count 285 X10^3/uL (150-400); Red Blood Cell Count 4.75 X10^6/uL (4.5-5.9); Red Cell Distribution Width 14.2 % (11.6-14.8); White Blood Cell Count 7.6 X10^3/uL (4.5-11.0)
[2024-06-02 11:03] LABS: Alanine Aminotransferase 36 IU/L (<50); Albumin 4.7 g/dL (3.5-5.0); Alkaline Phosphatase 80 U/L (38-126); Aspartate Aminotransferase 33 IU/L (17-59); BUN Creatinine Ratio 36.1 (6-22); Bilirubin Total 0.5 mg/dL (0.2-1.3); Blood Urea Nitrogen 22 mg/dL (9-20); Calcium 9.5 mg/dL (8.4-10.2); Carbon Dioxide 25 mmol/L (22-32); Chloride 100 mmol/L (98-107); Estimated Glomerular Filt Rate > 60 mL/min (>60); Globulin 2.4 g/dL (1.7-4.1); Glucose 102 mg/dL (80-110); HEMOLYSIS < 15 (0-50); Potassium 5.1 mmol/L (3.4-5.1); Sodium 134 mmol/L (137-145); Total Protein 7.1 g/dL (6.3-8.2); Triglycerides 54 mg/dL (35-150)
[2024-06-02 11:04] LABS: Cholesterol 157 mg/dL (140-199); HDL Cholesterol 87 mg/dL (40-60); LDL Cholesterol Calculated 59 mg/dL (<100)
[2024-06-02 11:26] LABS: Prostate Specific Antigen 0.989 ng/mL (0.10-4.00)
== END ==
PROVIDERS: PCP Family Medicine; Referring Provider Family Medicine; Visit Provider Family Medicine
DX: Z00.00 Encounter for general adult medical examination without abnormal findings (principal); E78.5 Hyperlipidemia, unspecified; I10 Essential (primary) hypertension; R73.03 Prediabetes; I25.2 Old myocardial infarction; M54.41 Lumbago with sciatica, right side; Z86.0100 Personal history of colon polyps, unspecified
CPT/HCPCS: 36415; 80053; 80061; 83036; 84153; 85025

== ENCOUNTER → 2024-10-11 07:50 | Outpatient (CLI) | payer BC, SELFPAY ==
[2020-08-05 13:40] VITALS: BMI 32.4
--- NOTE | 2024-10-11 07:51 | DI.RAD.S_ITS ---
PROCEDURE: XR ELBOW LT MIN 3V INDICATIONS: left elbow swelling TECHNIQUE: 3 views of the elbow were acquired. COMPARISON: None. FINDINGS: Bones: There are no osseous abnormalities. Elbow joint: Normal in width and alignment without arthritic change. There are no effusions. Soft tissues: Very heavy ossification of the triceps tendon insertion on the olecranon noted. There is mild overlying soft tissue swelling IMPRESSION: Very heavy ossification of the triceps tendon insertion on the olecranon. This is typically stigmata of old trauma or inflammation. Dictated by: Kai Harper M.D. on 10/11/2024 at 11:23 Approved by: Kai Harper M.D. on 10/11/2024 at 11:23
== END ==
PROVIDERS: PCP Family Medicine; Referring Provider Nurse Practitioner Family; Visit Provider Nurse Practitioner Family
DX: M71.9 Bursopathy, unspecified (principal)
CPT/HCPCS: 73080

== ENCOUNTER → 2025-05-04 16:10 | Outpatient (CLI) | payer BC, SELFPAY ==
[2025-01-01 13:18] VITALS: BMI 32.4
--- NOTE | 2025-05-04 16:12 | DI.RAD.S_ITS ---
PROCEDURE: XR LUMBAR SPINE 2-3V INDICATIONS: Exertional fatigue TECHNIQUE: 3 views of the lumbar spine were acquired. COMPARISON: [facility], CR, XR LUMBAR SPINE 2-3V, 07/11/2023, 12:19. FINDINGS: Bones: 5 [id number] vertebrae are present. There is normal bony alignment. No vertebral body compression fractures. No suspicious bony lesions. Posterior fusion from L3 through S1 with intervertebral spacers at L3-4, L4-5. Hardware is intact without hardware fracture or periprosthetic lucency to suggest loosening. Alignment is stable. Multilevel degenerative disc and foraminal narrowing most prominent L5-S1. Partially visualized right hip arthroplasty. Postsurgical and degenerative changes. Soft tissues: Overlying bowel gas pattern is normal. No suspicious soft tissue calcifications. IMPRESSION: No acute bony abnormality. Dictated by: Anitha Baez M.D. on 05/05/2025 at 17:07 Approved by: Anitha Baez M.D. on 05/05/2025 at 17:09
--- NOTE | 2025-05-04 16:12 | DI.RAD.S_ITS ---
PROCEDURE: XR CHEST 2V INDICATIONS: Exertional fatigue TECHNIQUE: 2 views of the chest were acquired. COMPARISON: [facility], CR, XR CHEST 2V, 09/12/2019, 11:06. FINDINGS: Surgical changes and devices: Cervical fixation plate. Lungs and pleura: Lungs are clear. No pleural effusions or pneumothorax. Mediastinum: Mediastinal contours are normal. Heart size is normal. Bones and chest wall: No suspicious bony abnormalities. Soft tissues appear unremarkable. IMPRESSION: No acute pulmonary process. Dictated by: Anitha Baez M.D. on 05/05/2025 at 17:28 Approved by: Anitha Baez M.D. on 05/05/2025 at 17:28
--- NOTE | 2025-05-04 16:12 | DI.RAD.S_ITS ---
PROCEDURE: XR CERVICAL SPINE 2V OR 3V INDICATIONS: Progressive neck pain with right-sided radiculopathy TECHNIQUE: 3 view(s) of the cervical spine were acquired. COMPARISON: [facility], , XR CERVICAL SPINE 2V OR 3V, 09/29/2022, 9:41. FINDINGS: Bones: No fractures or dislocations to the T1 level. The lateral masses of C1 appear intact on the odontoid view. No suspicious bony lesions. C5-6 anterior fusion. Hardware is intact without hardware fracture or periprosthetic lucency to suggest loosening. Alignment is stable. Multilevel uncovertebral arthropathy. Scattered small anterior osteophytes. Soft tissues: No prevertebral soft tissue swelling. IMPRESSION: Anterior fusion with multilevel uncovertebral arthropathy. Overall appearance is relatively stable compared to 2022. Dictated by: Anitha Baez M.D. on 05/05/2025 at 17:28 Approved by: Anitha Baez M.D. on 05/05/2025 at 17:29
[2025-05-04 17:16] LABS: Add Manual Diff / Slide Review NO; Hematocrit 43.1 % (41-53); Hemoglobin 14.7 g/dL (13.5-17.5); Lymphocytes Absolute Auto 1500 /uL (1100-4500); Mean Corpuscular HGB Conc 34.2 % (30-36); Mean Corpuscular Hemoglobin 30.9 PG (26-34); Mean Corpuscular Volume 90.4 fL (80-100); Platelet Count 313 X10^3/uL (150-400)
[2025-05-04 17:40] LABS: Alanine Aminotransferase 35 IU/L (<50); Albumin 4.6 g/dL (3.5-5.0); Albumin Globulin Ratio 1.8 (1.0-2.8); Alkaline Phosphatase 88 U/L (38-126); Blood Urea Nitrogen 20 mg/dL (9-20); Calcium 9.6 mg/dL (8.4-10.2); Carbon Dioxide 27 mmol/L (22-32); Chloride 102 mmol/L (98-107); Cholesterol 143 mg/dL (140-199); Estimated Glomerular Filt Rate > 60 mL/min (>60); Globulin 2.5 g/dL (1.7-4.1); Glucose 100 mg/dL (70-99); HDL Cholesterol 81 mg/dL (40-60); HEMOLYSIS 20 (0-50); Potassium 4.7 mmol/L (3.4-5.1); Sodium 136 mmol/L (137-145); Total Protein 7.1 g/dL (6.3-8.2); Triglycerides 92 mg/dL (35-150); Uric Acid 6.4 mg/dL (3.5-8.5)
[2025-05-04 17:42] LABS: Hemoglobin A1C% w Est Avg Glu 5.9 % (4.0-6.0)
[2025-05-04 18:11] LABS: TSH w/ Reflex to FT4 2.99 uIU/mL (0.47-4.68)
== END ==
PROVIDERS: PCP Family Medicine; Referring Provider Family Medicine; Visit Provider Family Medicine
DX: M47.26 Other spondylosis with radiculopathy, lumbar region (principal); M51.17 Intervertebral disc disorders with radiculopathy, lumbosacral region; M48.07 Spinal stenosis, lumbosacral region; G47.9 Sleep disorder, unspecified; R53.83 Other fatigue; R73.03 Prediabetes; I10 Essential (primary) hypertension; E78.2 Mixed hyperlipidemia; Z98.1 Arthrodesis status
CPT/HCPCS: 71046; 72040; 72100; 80053; 80061; 83036; 84443; 84550; 85025